=== PATIENT | male | born 1975 | race Caucasian/White ===

== ENCOUNTER 2016-12-06 22:52 | Emergency (ER) | payer OTHER ==
--- NOTE | 2016-12-07 00:24 | ED MAR SUMMARY ---
..... Medication Administration Record [facility] [address] [place] [address] Patient: SALINAS LEE Visit ID: [id number] 41y, M Weight: 88.4 kg Height/Length: 70 in BMI: 28 ALLERGIES: None
--- NOTE | 2016-12-07 00:24 | ED MED RECONCILIATION SUMMARY ---
Patient: SALINAS LEE Medication Reconciliation Report [facility] VisitID: [id number] [address] [place] [address] 41y, M Registration Date/Time: 12/06/2016 Weight: 88.4 kg Height/Length: 70 in. BMI: 28.0 ALLERGIES: None The patient's Home Medications are listed below: THE FOLLOWING MEDICATIONS NEED TO BE RECONCILED: CloNIDine HCl Oral Effexor XR Oral The source(s) of the original Home Medication information: patient The following Medications were given to the patient in the Emergency Department: None. The following Medications were prescribed to the patient: None.
--- NOTE | 2016-12-07 00:24 | ED MAR SUMMARY ---
..... Medication Administration Record [facility] [address] [place] [address] Patient: SALINAS LEE Visit ID: [id number] 41y, M Weight: 88.4 kg Height/Length: 70 in BMI: 28 ALLERGIES: None
--- NOTE | 2016-12-07 00:24 | ED MED RECONCILIATION SUMMARY ---
Patient: SALINAS LEE Medication Reconciliation Report [facility] VisitID: [id number] [address] [place] [address] 41y, M Registration Date/Time: 12/06/2016 Weight: 88.4 kg Height/Length: 70 in. BMI: 28.0 ALLERGIES: None The patient's Home Medications are listed below: THE FOLLOWING MEDICATIONS NEED TO BE RECONCILED: CloNIDine HCl Oral Effexor XR Oral The source(s) of the original Home Medication information: patient The following Medications were given to the patient in the Emergency Department: None. The following Medications were prescribed to the patient: None.
--- NOTE | 2016-12-07 00:24 | ED NURSING NOTES ---
Clinical Report - Nurses [facility] [address] [place] [address] 12/06/2016 22:54 Patient: SALINAS LEE TRIAGE Triage time 23:Dec 06 2016. Chief Complaint: (pt reports one year ago hopping over a barbed wire fence and hooking his perineum, pt now reports swelling and pain and is concerned there may be "another kim" in there he wasn't able to pull out, pain x 3 days- pt was seen at [place] earlier today for htn). Alert. No acute distress. SEPSIS SCREEN: Sepsis Screen: negative. Infection suspected/documented. --23:10 Howard King R.N. 23:03 12/06/16. BP: 147/95. HR: 72. RR: 15. O2 saturation: 100%. Temp: 97.7 F. Pain level now: 02/06. --23:10 Howard King R.N. Weight: 88.4 kg. Height/Length: 70 inches. BMI: 28. --23:03 Howard King R.N. Medications CloNIDine HCl Oral. --23:08 Howard King R.N. Effexor XR Oral. --23:08 Howard King R.N. Medication/allergy information source: the patient. --23:10 Howard King R.N. Allergies None. --23:08 Howard King R.N. History Arrived by private vehicle. Historian: patient. ( pain with bowel movements, area to left of shantanu hard and red). Treatment ADVICE LINE RN: None. PAST MEDICAL HX: Immunizations: up-to-date. SOCIAL HX: Heavy tobacco smoker (cigarette)- less than 1 pack per day. No alcohol use or drug use. No infectious disease exposure. ABUSE ASSESSMENT: No report of abuse. SELF HARM ASSESSMENT: A self harm assessment was performed. The patient answered "no" to the question "Have you recently felt down, depressed, or hopeless?", "Have you noticed less interest or pleasure in doing things?", "Do you have thoughts of harming or killing yourself?", "Are you here because you tried to hurt yourself?", "Have you ever tried to hurt yourself before today?", "Have you recently had thoughts about harming or killing others?" and "Do you have any dangerous items in your possession?". FALL RISK ASSESSMENT: Fall risk assessment completed. No fall risk identified. NUTRITIONAL RISK ASSESSMENT: The nutritional risk assessment revealed no deficiencies. FUNCTIONAL ASSESSMENT: Functional assessment: no impairments noted. LEARNING NEEDS ASSESSMENT: The learning needs assessment revealed no barriers. SKIN INTEGRITY ASSESSMENT: Skin integrity risk assessment completed. No skin integrity risk identified. --23:10 Howard King R.N. PROBLEMS: Depression. Hypertension. --23:09 Howard King R.N. ADDITIONAL SURGERIES: FB removal, scrotum. I&D scrotum (hydrocele vs abscess). --23:09 Howard King R.N. Interventions ID band on patient. --23:10 Howard King R.N. PHYSICAL ASSESSMENT Ambulatory to room. Patient gowned. GENERAL / NEURO / PSYCH: Alert. Oriented X 4. Appears in no acute distress. Appears in pain. HEENT: Mucous membranes are pink. RESPIRATORY: Respirations not labored. Breath sounds within normal limits. CVS: Capillary refill less than 2 seconds. GI / : Abdomen soft and nontender. Bowel sounds within normal limits. ( shantanu area red, to left hard area and red). SKIN: Skin is warm and dry. --23:11 PageHoward Evangelista R.N. NURSING PROGRESS NOTES Head of bed elevated. Reassurance given. Patient identifiers checked. Call light placed in reach. Side rails up. Bed placed in lowest position. Brakes of bed on. Patient ready for evaluation- chart flagged. --23:11 Howard King R.N. 23:10 Records requested from [facility] [place]. --23:17 McQuoid, Irene, ER Tech1 00:19 Patient call light answered; patient states "I think I'll come back another day. I'm not dying". --00:19 Earnestine, Irene, ER Tech1. DISPOSITION / DISCHARGE Departure time: 00:20 Dec 07 2016. ( per EDT pt left without being seen). --00:21 Howard King R.N. Locked/Released at 12/07/2016 0:24 by Howard King R.N.
--- NOTE | 2016-12-07 00:24 | ED NURSING NOTES ---
Clinical Report - Nurses [facility] [address] [place] [address] 12/06/2016 22:54 Patient: SALINAS LEE TRIAGE Triage time 23:Dec 06 2016. Chief Complaint: (pt reports one year ago hopping over a barbed wire fence and hooking his perineum, pt now reports swelling and pain and is concerned there may be "another kim" in there he wasn't able to pull out, pain x 3 days- pt was seen at [place] earlier today for htn). Alert. No acute distress. SEPSIS SCREEN: Sepsis Screen: negative. Infection suspected/documented. --23:10 Howard King R.N. 23:03 12/06/16. BP: 147/95. HR: 72. RR: 15. O2 saturation: 100%. Temp: 97.7 F. Pain level now: 02/06. --23:10 Howard King R.N. Weight: 88.4 kg. Height/Length: 70 inches. BMI: 28. --23:03 Howard King R.N. Medications CloNIDine HCl Oral. --23:08 Howard King R.N. Effexor XR Oral. --23:08 Howard King R.N. Medication/allergy information source: the patient. --23:10 Howard King R.N. Allergies None. --23:08 Howard King R.N. History Arrived by private vehicle. Historian: patient. ( pain with bowel movements, area to left of shantanu hard and red). Treatment HATCH BOSS: None. PAST MEDICAL HX: Immunizations: up-to-date. SOCIAL HX: Heavy tobacco smoker (cigarette)- less than 1 pack per day. No alcohol use or drug use. No infectious disease exposure. ABUSE ASSESSMENT: No report of abuse. SELF HARM ASSESSMENT: A self harm assessment was performed. The patient answered "no" to the question "Have you recently felt down, depressed, or hopeless?", "Have you noticed less interest or pleasure in doing things?", "Do you have thoughts of harming or killing yourself?", "Are you here because you tried to hurt yourself?", "Have you ever tried to hurt yourself before today?", "Have you recently had thoughts about harming or killing others?" and "Do you have any dangerous items in your possession?". FALL RISK ASSESSMENT: Fall risk assessment completed. No fall risk identified. NUTRITIONAL RISK ASSESSMENT: The nutritional risk assessment revealed no deficiencies. FUNCTIONAL ASSESSMENT: Functional assessment: no impairments noted. LEARNING NEEDS ASSESSMENT: The learning needs assessment revealed no barriers. SKIN INTEGRITY ASSESSMENT: Skin integrity risk assessment completed. No skin integrity risk identified. --23:10 Howard King R.N. PROBLEMS: Depression. Hypertension. --23:09 Howard King R.N. ADDITIONAL SURGERIES: FB removal, scrotum. I&D scrotum (hydrocele vs abscess). --23:09 Howard King R.N. Interventions ID band on patient. --23:10 Howard King R.N. PHYSICAL ASSESSMENT Ambulatory to room. Patient gowned. GENERAL / NEURO / PSYCH: Alert. Oriented X 4. Appears in no acute distress. Appears in pain. HEENT: Mucous membranes are pink. RESPIRATORY: Respirations not labored. Breath sounds within normal limits. CVS: Capillary refill less than 2 seconds. GI / : Abdomen soft and nontender. Bowel sounds within normal limits. ( shantanu area red, to left hard area and red). SKIN: Skin is warm and dry. --23:11 PageHoward Evangelista R.N. NURSING PROGRESS NOTES Head of bed elevated. Reassurance given. Patient identifiers checked. Call light placed in reach. Side rails up. Bed placed in lowest position. Brakes of bed on. Patient ready for evaluation- chart flagged. --23:11 Howard King R.N. 23:10 [place] [facility] [place] --23:17 McQuoid, Irene, ER Tech1 00:19 Patient call light answered; patient states "I think I'll come back another day. I'm not dying". --00:19 Earnestine, Irene, ER Tech1. DISPOSITION / DISCHARGE Departure time: 00:20 Dec 07 2016. ( per EDT pt left without being seen). --00:21 Howard King R.N. Locked/Released at 12/07/2016 0:24 by Howard King R.N.
== END 2016-12-07 00:20 | disposition left against medical advice (07) ==
LOC: ED SRH 22:52
DX: Z53.21 Procedure and treatment not carried out due to patient leaving prior to being seen by health care provider (principal)

== ENCOUNTER 2016-12-07 03:11 | Emergency (ER) | payer OTHER ==
--- NOTE | 2016-12-07 04:07 | ED CLINICAL REPORT ---
Clinical Report - Physicians/Mid Levels [facility] [address] [place] [address] 12/07/2016 3:11 Patient: SALINAS LEE Time Seen: 03:33. Arrived- By private vehicle. Historian- patient. HISTORY OF PRESENT ILLNESS Chief Complaint: TENDER AREA. This started several days ago and is still present. It was gradual in onset and has been constant. It is described as painful. It has been located in the perianal area (on the L side between his scrotum and anus). A possible cause has been identified (he says that about a year ago he was climbing a kim wire fence and a piece of kim wire broke off in his skinnear the site. He says he has had multiple recurring infections at the spot since.). Similar symptoms previously: Many times. Recent medical care: The patient was seen recently at another facility in the emergency department. Seen for other problems. Diagnosis: (Opiate withdrawal). REVIEW OF SYSTEMS No chills, fever, sweats, calf pain or chest pain. No cough, difficulty breathing, pedal edema, palpitations or abdominal pain. No constipation, diarrhea, nausea, vomiting or urinary problems. All systems otherwise negative, except as recorded above. PAST HISTORY Problems: Traumatic Brain Injury. Depression. Hypertension. Myofascial Strain. Fractured Metacarpal. Additional Surgeries: FB removal, scrotum. I&D scrotum (hydrocele vs abscess). Medications: CloNIDine HCl Oral. Effexor XR Oral. Allergies: None. SOCIAL HISTORY Former smoker. No alcohol use or drug use. FAMILY HISTORY Denies family medical history. ADDITIONAL NOTES The nursing notes have been reviewed. PHYSICAL EXAM Vital Signs: 12/07/2016 03:19 BP: 152/96. HR: 92. RR: 16. O2 saturation: 100%. Temp: 97.6 F. Pain level now: 7/10. Have been reviewed. Appearance: Alert. Eyes: Pupils equal, round and reactive to light. ENT: Pharynx normal. Neck: Neck supple. CVS: Heart sounds normal. Respiratory: Breath sounds normal. Abdomen: Nontender. No organomegaly. Skin: Single medium abscess with cellulitis (perineum). No fluctuance, pointing or drainage. Extremities: Normal external inspection. No calf tenderness. PROGRESS AND PROCEDURES Course of Care: Patient is stable. Patient/family counseled. Old medical records reviewed. Disposition: Discharged. Condition: stable. CLINICAL IMPRESSION Single abscess (perineum). INSTRUCTIONS Apply moist heat for 20 minutes four times a day until better. Don't use while asleep. Warnings: Further evaluation is necessary. GENERAL WARNINGS: Return or contact your physician immediately if your condition worsens or changes unexpectedly, if not improving as expected, or if other problems arise. Prescription Medications: Clindamycin 300 mg: take 1 capsule orally every 6 hours for 10 days. No refill. Follow-up: Follow up with your doctor in two days. Call for an appointment. Understanding of the discharge instructions verbalized by patient. (Electronically signed by Calvin Trinidad MD 12/07/2016 10:13)
--- NOTE | 2016-12-07 04:07 | ED CLINICAL REPORT ---
Clinical Report - Physicians/Mid Levels [facility] [address] [place] [address] 12/07/2016 3:11 Patient: SALINAS LEE Time Seen: 03:33. Arrived- By private vehicle. Historian- patient. HISTORY OF PRESENT ILLNESS Chief Complaint: TENDER AREA. This started several days ago and is still present. It was gradual in onset and has been constant. It is described as painful. It has been located in the perianal area (on the L side between his scrotum and anus). A possible cause has been identified (he says that about a year ago he was climbing a kim wire fence and a piece of kim wire broke off in his skinnear the site. He says he has had multiple recurring infections at the spot since.). Similar symptoms previously: Many times. Recent medical care: The patient was seen recently at another facility in the emergency department. Seen for other problems. Diagnosis: (Opiate withdrawal). REVIEW OF SYSTEMS No chills, fever, sweats, calf pain or chest pain. No cough, difficulty breathing, pedal edema, palpitations or abdominal pain. No constipation, diarrhea, nausea, vomiting or urinary problems. All systems otherwise negative, except as recorded above. PAST HISTORY Problems: Traumatic Brain Injury. Depression. Hypertension. Myofascial Strain. Fractured Metacarpal. Additional Surgeries: FB removal, scrotum. I&D scrotum (hydrocele vs abscess). Medications: CloNIDine HCl Oral. Effexor XR Oral. Allergies: None. SOCIAL HISTORY Former smoker. No alcohol use or drug use. FAMILY HISTORY Denies family medical history. ADDITIONAL NOTES The nursing notes have been reviewed. PHYSICAL EXAM Vital Signs: 12/07/2016 03:19 BP: 152/96. HR: 92. RR: 16. O2 saturation: 100%. Temp: 97.6 F. Pain level now: 7/10. Have been reviewed. Appearance: Alert. Eyes: Pupils equal, round and reactive to light. ENT: Pharynx normal. Neck: Neck supple. CVS: Heart sounds normal. Respiratory: Breath sounds normal. Abdomen: Nontender. No organomegaly. Skin: Single medium abscess with cellulitis (perineum). No fluctuance, pointing or drainage. Extremities: Normal external inspection. No calf tenderness. PROGRESS AND PROCEDURES Course of Care: Patient is stable. Patient/family counseled. Old medical records reviewed. Disposition: Discharged. Condition: stable. CLINICAL IMPRESSION Single abscess (perineum). INSTRUCTIONS Apply moist heat for 20 minutes four times a day until better. Don't use while asleep. Warnings: Further evaluation is necessary. GENERAL WARNINGS: Return or contact your physician immediately if your condition worsens or changes unexpectedly, if not improving as expected, or if other problems arise. Prescription Medications: Clindamycin 300 mg: take 1 capsule orally every 6 hours for 10 days. No refill. Follow-up: Follow up with your doctor in two days. Call for an appointment. Understanding of the discharge instructions verbalized by patient. (Electronically signed by Calvin Trinidad MD 12/07/2016 10:13)
--- NOTE | 2016-12-07 04:07 | ED NURSING NOTES ---
Clinical Report - Nurses [facility] [address] [place] [address] 12/07/2016 3:11 Patient: SALINAS LEE TRIAGE Triage time 03:19. Acuity: LEVEL 3. --03:24 Sheriff Davis R.N. 03:19 12/07/16. BP: 152/96. HR: 92. RR: 16. O2 saturation: 100%. Temp: 97.6 F. Pain level now: 02/06. --03:24 Sheriff Davis R.N. Chief Complaint: TESTICULAR PAIN. --04:37 Sheriff Davis R.N. Weight: 108.8 kg stated. Height/Length: 73 inches. BMI: 31.7. --03:24 Sheriff Davis R.N. Medications CloNIDine HCl Oral. Effexor XR Oral. --03:20 Sheriff Davis R.N. Allergies None. --03:20 Sheriff Davis R.N. History Arrived by private vehicle. Historian: patient. ( Left groin swelling and redness. Noted swelling about a week ago. worsening pain and discomfort today. Patient was here yesterday but couldn't wait and left.). SOCIAL HX: Former smoker. No alcohol use or drug use. FALL RISK ASSESSMENT: Fall risk assessment completed. No fall risk identified. NUTRITIONAL RISK ASSESSMENT: The nutritional risk assessment revealed no deficiencies. FUNCTIONAL ASSESSMENT: Functional assessment: no impairments noted. LEARNING NEEDS ASSESSMENT: The learning needs assessment revealed no barriers. SKIN INTEGRITY ASSESSMENT: Skin breakdown noted on the left hip (Left groin swelling and redness.). --03:24 Sheriff Davis R.N. PROBLEMS: Depression. Hypertension. Myofascial Strain. Fractured Metacarpal. --03:22 Sheriff Davis R.N. Interventions ID band on patient. --03:24 Sheriff Davis R.N. PHYSICAL ASSESSMENT Ambulatory to room. GENERAL / NEURO / PSYCH: Alert. Oriented X 4. HEENT: Mucous membranes are pink. RESPIRATORY: Respirations not labored. CVS: Capillary refill less than 2 seconds. GI / : ( Left groin swelling.). SKIN: Skin is warm and dry. ( Left groin swelling and pain.). --03:25 Sheriff Davis R.N. NURSING PROGRESS NOTES Head of bed elevated. Two patient identifiers checked. Call light placed in reach. Side rails up x 2. Bed placed in lowest position. Brakes of bed on. --03:26 Sheriff Davis R.N. DISPOSITION / DISCHARGE The patient left prior to discharge education being provided. ( Left before discharge.). --04:38 Sheriff Davis R.N. Locked/Released at 12/07/2016 4:38 by Sheriff Davis R.N.
--- NOTE | 2016-12-07 04:07 | ED NURSING NOTES ---
Clinical Report - Nurses [facility] [address] [place] [address] 12/07/2016 3:11 Patient: SALINAS LEE TRIAGE Triage time 03:19. Acuity: LEVEL 3. --03:24 Sheriff Davis R.N. 03:19 12/07/16. BP: 152/96. HR: 92. RR: 16. O2 saturation: 100%. Temp: 97.6 F. Pain level now: 02/06. --03:24 Sheriff Davis R.N. Chief Complaint: TESTICULAR PAIN. --04:37 Sheriff Davis R.N. Weight: 108.8 kg stated. Height/Length: 73 inches. BMI: 31.7. --03:24 Sheriff Davis R.N. Medications CloNIDine HCl Oral. Effexor XR Oral. --03:20 Sheriff Davis R.N. Allergies None. --03:20 Sheriff Davis R.N. History Arrived by private vehicle. Historian: patient. ( Left groin swelling and redness. Noted swelling about a week ago. worsening pain and discomfort today. Patient was here yesterday but couldn't wait and left.). SOCIAL HX: Former smoker. No alcohol use or drug use. FALL RISK ASSESSMENT: Fall risk assessment completed. No fall risk identified. NUTRITIONAL RISK ASSESSMENT: The nutritional risk assessment revealed no deficiencies. FUNCTIONAL ASSESSMENT: Functional assessment: no impairments noted. LEARNING NEEDS ASSESSMENT: The learning needs assessment revealed no barriers. SKIN INTEGRITY ASSESSMENT: Skin breakdown noted on the left hip (Left groin swelling and redness.). --03:24 Sheriff Davis R.N. PROBLEMS: Depression. Hypertension. Myofascial Strain. Fractured Metacarpal. --03:22 Sheriff Davis R.N. Interventions ID band on patient. --03:24 Sheriff Davis R.N. PHYSICAL ASSESSMENT Ambulatory to room. GENERAL / NEURO / PSYCH: Alert. Oriented X 4. HEENT: Mucous membranes are pink. RESPIRATORY: Respirations not labored. CVS: Capillary refill less than 2 seconds. GI / : ( Left groin swelling.). SKIN: Skin is warm and dry. ( Left groin swelling and pain.). --03:25 Sheriff Davis R.N. NURSING PROGRESS NOTES Head of bed elevated. Two patient identifiers checked. Call light placed in reach. Side rails up x 2. Bed placed in lowest position. Brakes of bed on. --03:26 Sheriff Davis R.N. DISPOSITION / DISCHARGE The patient left prior to discharge education being provided. ( Left before discharge.). --04:38 Sheriff Davis R.N. Locked/Released at 12/07/2016 4:38 by Sheriff Davis R.N.
--- NOTE | 2016-12-07 10:13 | ED DISCHARGE INSTRUCTIONS ---
Patient: SALINAS LEE General Instructions [facility] VisitID: [id number] [address] [place] [address] 41y, M Registration Date/Time: 12/07/2016 Single abscess (perineum). INSTRUCTIONS Apply moist heat for 20 minutes four times a day until better. Don't use while asleep. Warnings: Further evaluation is necessary. GENERAL WARNINGS: Return or contact your physician immediately if your condition worsens or changes unexpectedly, if not improving as expected, or if other problems arise. Prescription Medications: Clindamycin 300 mg: take 1 capsule orally every 6 hours for 10 days. No refill. Follow-up: Follow up with your doctor in two days. Call for an appointment. Understanding of the discharge instructions verbalized by patient. ADDITIONAL INFORMATION Abscess (Antibiotic Treatment Only) An abscess (sometimes called a boil) occurs when bacteria get trapped under the skin and begin to grow. Pus forms inside the abscess as the body responds to the bacteria. An abscess can occur with an insect bite, ingrown hair, blocked oil gland, pimple, cyst, or puncture wound. In the early stages, redness and tenderness are the only symptoms. Sometimes, this stage can be treated with antibiotics alone. If the abscess does not respond to antibiotic treatment, it will need to be drained with a small cut, under local anesthesia. Home care The following will help you care for your abscess at home: Soak the wound in hot water or apply hot packs (small towel soaked in hot water) to the area for 20 minutes at a time. Do this three to four times a day. Apply antibiotic cream or ointment onto the skin 3-4 times a day, unless something else was prescribed. Some ointments include an antibiotic plus a local pain reliever. If your doctor prescribed antibiotics, do not stop taking this medication until you have finished the prescribed course or the doctor tells you to stop. You may use an [id number] pain medication to control pain, unless another pain medicine was prescribed. If you have chronic liver or kidney disease or ever had a stomach ulcer or GI bleeding, talk with your doctor before using these any of these. Follow-up care Follow up with your health care provider as advised by our staff. Look at your wound each day for the signs of worsening infection listed below. When to seek medical care Get prompt medical attention if any of the following occur: An increase in redness or swelling Red streaks in the skin leading away from the abscess An increase in local pain or swelling Fever of 100.4F (38C) or higher, or as directed by your health care provider Pus or fluid coming from the abscess Clindamycin Hydrochloride Oral capsule What is this medicine? CLINDAMYCIN (HAZEL Cárdenas) is a lincosamide antibiotic. It is used to treat certain kinds of bacterial infections. It will not work for colds, flu, or other viral infections. How should I use this medicine? Take this medicine by mouth with a full glass of water. Follow the directions on the prescription label. You can take this medicine with food or on an empty stomach. If the medicine upsets your stomach, take it with food. Take your medicine at regular intervals. Do not take your medicine more often than directed. Take all of your medicine as directed even if you think your are better. Do not skip doses or stop your medicine early. Talk to your prosthetic technician regarding the use of this medicine in children. Special care may be needed. What side effects may I notice from receiving this medicine? Side effects that you should report to your doctor or health career resource technician as soon as possible: allergic reactions like skin rash, itching or hives, swelling of the face, lips, or tongue dark urine pain on swallowing redness, blistering, peeling or loosening of the skin, including inside the mouth unusual bleeding or bruising unusually weak or tired yellowing of eyes or skin Side effects that usually do not require medical attention (report to your doctor or health career resource technician if they continue or are bothersome): diarrhea itching in the rectal or genital area joint pain nausea, vomiting stomach pain What may interact with this medicine? chloramphenicol erythromycin kaolin products What if I miss a dose? If you miss a dose, take it as soon as you can. If it is almost time for your next dose, take only that dose. Do not take double or extra doses. Where should I keep my medicine? Keep out of the reach of children. Store at room temperature between 20 and 25 degrees C (68 and 77 degrees F). Throw away any unused medicine after the expiration date. What should I tell my health care provider before I take this medicine? They need to know if you have any of these conditions: kidney disease liver disease stomach problems like colitis an unusual or allergic reaction to clindamycin, lincomycin, or other medicines, foods, dyes like tartrazine or preservatives or trying to get breast-feeding What should I watch for while using this medicine? Tell your doctor or healthcare professional if your symptoms do not start to get better or if they get worse. Do not treat diarrhea with over the counter products. Contact your doctor if you have diarrhea that lasts more than 2 days or if it is severe and watery. You have been given the following additional information: Abscess, Antiobiotic Treatment Only Clindamycin Hydrochloride Oral capsule (Electronically signed by Calvin Trinidad MD 12/07/2016 10:13)
--- NOTE | 2016-12-07 10:13 | ED DISCHARGE INSTRUCTIONS ---
Patient: SALINAS LEE General Instructions [facility] VisitID: [id number] [address] [place] [address] 41y, M Registration Date/Time: 12/07/2016 Single abscess (perineum). INSTRUCTIONS Apply moist heat for 20 minutes four times a day until better. Don't use while asleep. Warnings: Further evaluation is necessary. GENERAL WARNINGS: Return or contact your physician immediately if your condition worsens or changes unexpectedly, if not improving as expected, or if other problems arise. Prescription Medications: Clindamycin 300 mg: take 1 capsule orally every 6 hours for 10 days. No refill. Follow-up: Follow up with your doctor in two days. Call for an appointment. Understanding of the discharge instructions verbalized by patient. ADDITIONAL INFORMATION Abscess (Antibiotic Treatment Only) An abscess (sometimes called a boil) occurs when bacteria get trapped under the skin and begin to grow. Pus forms inside the abscess as the body responds to the bacteria. An abscess can occur with an insect bite, ingrown hair, blocked oil gland, pimple, cyst, or puncture wound. In the early stages, redness and tenderness are the only symptoms. Sometimes, this stage can be treated with antibiotics alone. If the abscess does not respond to antibiotic treatment, it will need to be drained with a small cut, under local anesthesia. Home care The following will help you care for your abscess at home: Soak the wound in hot water or apply hot packs (small towel soaked in hot water) to the area for 20 minutes at a time. Do this three to four times a day. Apply antibiotic cream or ointment onto the skin 3-4 times a day, unless something else was prescribed. Some ointments include an antibiotic plus a local pain reliever. If your doctor prescribed antibiotics, do not stop taking this medication until you have finished the prescribed course or the doctor tells you to stop. You may use an [id number] pain medication to control pain, unless another pain medicine was prescribed. If you have chronic liver or kidney disease or ever had a stomach ulcer or GI bleeding, talk with your doctor before using these any of these. Follow-up care Follow up with your health care provider as advised by our staff. Look at your wound each day for the signs of worsening infection listed below. When to seek medical care Get prompt medical attention if any of the following occur: An increase in redness or swelling Red streaks in the skin leading away from the abscess An increase in local pain or swelling Fever of 100.4F (38C) or higher, or as directed by your health care provider Pus or fluid coming from the abscess Clindamycin Hydrochloride Oral capsule What is this medicine? CLINDAMYCIN (HAZEL Cárdenas) is a lincosamide antibiotic. It is used to treat certain kinds of bacterial infections. It will not work for colds, flu, or other viral infections. How should I use this medicine? Take this medicine by mouth with a full glass of water. Follow the directions on the prescription label. You can take this medicine with food or on an empty stomach. If the medicine upsets your stomach, take it with food. Take your medicine at regular intervals. Do not take your medicine more often than directed. Take all of your medicine as directed even if you think your are better. Do not skip doses or stop your medicine early. Talk to your wood experimental mechanic regarding the use of this medicine in children. Special care may be needed. What side effects may I notice from receiving this medicine? Side effects that you should report to your doctor or health patient care representative as soon as possible: allergic reactions like skin rash, itching or hives, swelling of the face, lips, or tongue dark urine pain on swallowing redness, blistering, peeling or loosening of the skin, including inside the mouth unusual bleeding or bruising unusually weak or tired yellowing of eyes or skin Side effects that usually do not require medical attention (report to your doctor or health patient care representative if they continue or are bothersome): diarrhea itching in the rectal or genital area joint pain nausea, vomiting stomach pain What may interact with this medicine? chloramphenicol erythromycin kaolin products What if I miss a dose? If you miss a dose, take it as soon as you can. If it is almost time for your next dose, take only that dose. Do not take double or extra doses. Where should I keep my medicine? Keep out of the reach of children. Store at room temperature between 20 and 25 degrees C (68 and 77 degrees F). Throw away any unused medicine after the expiration date. What should I tell my health care provider before I take this medicine? They need to know if you have any of these conditions: kidney disease liver disease stomach problems like colitis an unusual or allergic reaction to clindamycin, lincomycin, or other medicines, foods, dyes like tartrazine or preservatives or trying to get breast-feeding What should I watch for while using this medicine? Tell your doctor or healthcare professional if your symptoms do not start to get better or if they get worse. Do not treat diarrhea with over the counter products. Contact your doctor if you have diarrhea that lasts more than 2 days or if it is severe and watery. You have been given the following additional information: Abscess, Antiobiotic Treatment Only Clindamycin Hydrochloride Oral capsule (Electronically signed by Calvin Trinidad MD 12/07/2016 10:13)
--- NOTE | 2016-12-07 10:14 | ED MAR SUMMARY ---
..... Medication Administration Record [facility] [address] [place], [place] [id number] Patient: SALINAS LEE Visit ID: [id number] 41y, M Weight: 108.8 kg Height/Length: 73 in BMI: 31.7 ALLERGIES: None
--- NOTE | 2016-12-07 10:14 | ED MAR SUMMARY ---
..... Medication Administration Record [facility] [address], [place] [id number] Patient: SALINAS LEE Visit ID: [id number] 41y, M Weight: 108.8 kg Height/Length: 73 in BMI: 31.7 ALLERGIES: None
--- NOTE | 2016-12-07 10:14 | ED MED RECONCILIATION SUMMARY ---
Patient: SALINAS LEE Medication Reconciliation Report [facility] VisitID: [id number] [address] [place] [address] 41y, M Registration Date/Time: 12/07/2016 Weight: 108.8 kg Height/Length: 73 in. BMI: 31.7 ALLERGIES: None The patient's Home Medications are listed below: THE FOLLOWING MEDICATIONS NEED TO BE RECONCILED: CloNIDine HCl Oral Effexor XR Oral The source(s) of the original Home Medication information: Not obtained. The following Medications were given to the patient in the Emergency Department: None. The following Medications were prescribed to the patient: Clindamycin 300 mg: take 1 capsule orally every 6 hours for 10 days. No refill. -- Calvin Trinidad MD
--- NOTE | 2016-12-07 10:14 | ED MED RECONCILIATION SUMMARY ---
Patient: SALINAS LEE Medication Reconciliation Report [facility] VisitID: [id number] [address] [place] [address] 41y, M Registration Date/Time: 12/07/2016 Weight: 108.8 kg Height/Length: 73 in. BMI: 31.7 ALLERGIES: None The patient's Home Medications are listed below: THE FOLLOWING MEDICATIONS NEED TO BE RECONCILED: CloNIDine HCl Oral Effexor XR Oral The source(s) of the original Home Medication information: Not obtained. The following Medications were given to the patient in the Emergency Department: None. The following Medications were prescribed to the patient: Clindamycin 300 mg: take 1 capsule orally every 6 hours for 10 days. No refill. -- Calvin Trinidad MD
== END 2016-12-07 04:33 | disposition home or self-care (01) ==
LOC: ED SRH 03:11
DX: L02.215 Cutaneous abscess of perineum (principal); I10 Essential (primary) hypertension; Z79.899 Other long term (current) drug therapy; Z87.891 Personal history of nicotine dependence